=== PATIENT | female | born 1975 | race Caucasian/White ===

== ENCOUNTER → 2023-08-25 11:23 | Outpatient (REF) | payer BC, SELFPAY | LOC: RAD 11:23 | PROVIDERS: ATTENDING PHYSICIAN Physician Assistant; FAMILY PHYSICIAN Family Medicine | DX: M89.8X8 Other specified disorders of bone, other site (principal) | CPT/HCPCS: 73590 ==

== ENCOUNTER → 2023-11-26 10:59 | Outpatient (REF) | payer BC, SELFPAY | LOC: RAD 10:59 | PROVIDERS: ATTENDING PHYSICIAN Internal Medicine Rheumatology | DX: M16.0 Bilateral primary osteoarthritis of hip (principal) | CPT/HCPCS: 73523 ==

== ENCOUNTER → 2024-02-23 15:09 | Outpatient (REF) | payer BC, SELFPAY | LOC: WDC 15:09 | PROVIDERS: ATTENDING PHYSICIAN Family Medicine | DX: Z12.31 Encounter for screening mammogram for malignant neoplasm of breast (principal) | CPT/HCPCS: 77063; 77067 ==